=== PATIENT | female | born 1990 | race Caucasian/White ===

== ENCOUNTER → 2023-05-12 12:59 | Outpatient (REF) | payer BC, SELFPAY | LOC: HWRAD 12:59 | PROVIDERS: ATTENDING PHYSICIAN Obstetrics & Gynecology; FAMILY PHYSICIAN Family Medicine | DX: N92.6 Irregular menstruation, unspecified (principal); N92.1 Excessive and frequent menstruation with irregular cycle | CPT/HCPCS: 76830; 76856 ==